=== PATIENT | female | born 1955 | race Caucasian/White ===

== ENCOUNTER → 2020-06-29 | Outpatient (CLI) | payer BC, OTHER ==
[~2020-06-29] MED LIST: OMNICEF 300 MG300 MG PO
== END ==
LOC: ECHO 09:58
DX: C50.412 Malignant neoplasm of upper-outer quadrant of left female breast (principal); I08.1 Rheumatic disorders of both mitral and tricuspid valves
CPT/HCPCS: ECHO; 93306

== ENCOUNTER → 2020-08-03 | Outpatient (CLI) | payer BC, OTHER | LOC: ECHO 11:30 | DX: C50.412 Malignant neoplasm of upper-outer quadrant of left female breast (principal); C50.919 Malignant neoplasm of unspecified site of unspecified female breast; C77.3 Secondary and unspecified malignant neoplasm of axilla and upper limb lymph nodes; Z17.1 Estrogen receptor negative status [ER-] | CPT/HCPCS: 93308 ==

== ENCOUNTER → 2020-08-18 | Outpatient (CLI) | payer BC, OTHER | LOC: MAMO 10:00 | DX: C50.412 Malignant neoplasm of upper-outer quadrant of left female breast (principal); Z17.1 Estrogen receptor negative status [ER-] | CPT/HCPCS: 77065; G0279 ==

== ENCOUNTER → 2020-09-05 | Outpatient (CLI) | payer OTHER | LOC: ECHO 10:00 | DX: C50.919 Malignant neoplasm of unspecified site of unspecified female breast (principal); C50.412 Malignant neoplasm of upper-outer quadrant of left female breast; C77.3 Secondary and unspecified malignant neoplasm of axilla and upper limb lymph nodes; Z17.1 Estrogen receptor negative status [ER-] | CPT/HCPCS: 93308 ==

== ENCOUNTER → 2020-10-10 | Outpatient (CLI) | payer OTHER | LOC: HEART 5 10-03 13:00 | DX: I50.22 Chronic systolic (congestive) heart failure (principal); I42.9 Cardiomyopathy, unspecified | CPT/HCPCS: 78472; A9560 ==

== ENCOUNTER → 2021-01-10 | Outpatient (CLI) | payer OTHER | LOC: ECHO 01-04 09:30 | DX: I42.9 Cardiomyopathy, unspecified (principal); I50.22 Chronic systolic (congestive) heart failure; I08.1 Rheumatic disorders of both mitral and tricuspid valves | CPT/HCPCS: ECHO; 93306 ==

== ENCOUNTER → 2021-01-24 | Outpatient (CLI) | payer OTHER ==
[~2021-01-24] MED LIST changes: +ALDACTONE 25MG25 MG PO; +ALPRAZOLAM0.5 MG PO; +ASPIRIN81 MG PO; +ATORVASTATIN CA10 MG PO; +BUPROPION XL150 MG PO; +CLARITIN 10MG T10 MG PO; +CLINDAMYCIN HC300 MG PO; +ESCITALOPRAM OX20 MG PO; +GLUCOPHAGE XR500 M1 PO; +HYDROCODON-ACE1 EAC4 PO; +IBUPROFEN600 MG PO; +LEVOFLOXACIN500 MG PO; +LEVOTHYROXINE112 MCG PO; +LOSARTAN-HCTZ1 EACH PO; +METOPROLOL SUCC25 MG PO; +OMEPRAZOLE40 MG PO; +VITAMIN D 40400 UNIT PO
[2021-01-24 13:37] LABS: HEMOGLOBIN 13.1 gm/dl (12.3-15.3); RED BLOOD COUNT 4.11 M/UL (4.00-5.10); WHITE BLOOD COUNT 7.4 K/UL (4.5-11.0)
[2021-01-24 13:58] LABS: BUN/CREATININE RATIO 24 (0-10)
== END ==
LOC: LAB 12:12
PROVIDERS: Internal Medicine Cardiovascular Disease
DX: I50.22 Chronic systolic (congestive) heart failure (principal); I42.0 Dilated cardiomyopathy
CPT/HCPCS: 36415; 71046; 80048; 85025

== ENCOUNTER 2021-01-26 06:41 | Outpatient (CLI) | payer OTHER ==
[~2021-01-26] VITALS: Ht 162.6 cm; Wt 98.9 kg
[~2021-01-26 06:41] MED LIST changes: -ALDACTONE 25MG25 MG PO; -ALPRAZOLAM0.5 MG PO; -ASPIRIN81 MG PO; -ATORVASTATIN CA10 MG PO; -BUPROPION XL150 MG PO; -CLARITIN 10MG T10 MG PO; -CLINDAMYCIN HC300 MG PO; -ESCITALOPRAM OX20 MG PO; -GLUCOPHAGE XR500 M1 PO; -HYDROCODON-ACE1 EAC4 PO; -IBUPROFEN600 MG PO; -LEVOFLOXACIN500 MG PO; -LEVOTHYROXINE112 MCG PO; -LOSARTAN-HCTZ1 EACH PO; -METOPROLOL SUCC25 MG PO; -OMEPRAZOLE40 MG PO; -VITAMIN D 40400 UNIT PO
[2021-01-26] MEDS ORDERED: CLARITIN 10MG T10 MG PO (07:12)
[2021-01-26] MEDS ORDERED: OMEPRAZOLE40 MG PO (07:12)
[2021-01-26] MEDS ORDERED: ESCITALOPRAM OX20 MG PO (07:12)
[2021-01-26] MEDS ORDERED: BUPROPION XL150 MG PO (07:13)
[2021-01-26] MEDS ORDERED: LEVOTHYROXINE112 MCG PO (07:13)
[2021-01-26] MEDS ORDERED: METOPROLOL SUCC25 MG PO (07:13)
[2021-01-26] MEDS ORDERED: ALDACTONE 25MG25 MG PO (07:13)
[2021-01-26] MEDS ORDERED: ATORVASTATIN CA10 MG PO (07:14)
[2021-01-26] MEDS ORDERED: GLUCOPHAGE XR500 M1 PO (07:14)
[2021-01-26] MEDS ORDERED: LOSARTAN-HCTZ1 EACH PO (07:14)
[2021-01-26] MEDS ORDERED: ALPRAZOLAM0.5 MG PO (07:15)
[2021-01-26] MEDS ORDERED: ASPIRIN81 MG PO (07:15)
[2021-01-26] MEDS ORDERED: VITAMIN D 40400 UNIT PO (07:16)
[2021-01-26] MEDS ORDERED: IBUPROFEN600 MG PO (07:17)
[2021-01-26] MEDS ORDERED: LEVOFLOXACIN500 MG PO (12:14)
[2021-01-26] MEDS ORDERED: CLINDAMYCIN HC300 MG PO (12:14)
[2021-01-26] MEDS ORDERED: HYDROCODON-ACE1 EAC4 PO (12:14)
== END 2021-01-27 11:35 | disposition home or self-care (01) ==
LOC: CATH 06:41 → PROG CARE 12:45 → CATH 01-27 11:35
DX: I42.0 Dilated cardiomyopathy (principal); I11.0 Hypertensive heart disease with heart failure; I50.22 Chronic systolic (congestive) heart failure; I44.7 Left bundle-branch block, unspecified; E03.9 Hypothyroidism, unspecified; C50.919 Malignant neoplasm of unspecified site of unspecified female breast; E11.9 Type 2 diabetes mellitus without complications; E78.5 Hyperlipidemia, unspecified; M81.0 Age-related osteoporosis without current pathological fracture; L40.9 Psoriasis, unspecified; Z88.8 Allergy status to other drugs, medicaments and biological substances; Z79.82 Long term (current) use of aspirin; Z79.84 Long term (current) use of oral hypoglycemic drugs; Z79.899 Other long term (current) drug therapy
CPT/HCPCS: 33225; 33249; 71045; 82962; 93005; 93641; 99152; 99153; C1769; C1777; C1882; C1898; C1900; J1200; J1644; J2250; J3010; J3370; J7040; J7050; J7070; Q9965

== ENCOUNTER → 2021-08-20 | Outpatient (CLI) | payer OTHER ==
[~2021-08-20] MED LIST changes: +ALDACTONE 25MG25 MG PO; +ALPRAZOLAM0.5 MG PO; +ASPIRIN81 MG PO; +ATORVASTATIN CA10 MG PO; +BUPROPION XL150 MG PO; +CLARITIN 10MG T10 MG PO; +CLINDAMYCIN HC300 MG PO; +ESCITALOPRAM OX20 MG PO; +GLUCOPHAGE XR500 M1 PO; +HYDROCODON-ACE1 EAC4 PO; +IBUPROFEN600 MG PO; +LEVOFLOXACIN500 MG PO; +LEVOTHYROXINE112 MCG PO; +LOSARTAN-HCTZ1 EACH PO; +METOPROLOL SUCC25 MG PO; +OMEPRAZOLE40 MG PO; +VITAMIN D 40400 UNIT PO
== END ==
LOC: MAMO 10:30
DX: Z12.31 Encounter for screening mammogram for malignant neoplasm of breast (principal); C50.919 Malignant neoplasm of unspecified site of unspecified female breast; C50.412 Malignant neoplasm of upper-outer quadrant of left female breast; C77.3 Secondary and unspecified malignant neoplasm of axilla and upper limb lymph nodes; Z17.1 Estrogen receptor negative status [ER-]
CPT/HCPCS: 77063; 77067